=== PATIENT | female | born 1995 | race Caucasian/White ===

== ENCOUNTER → 2016-09-13 | Outpatient (CLI) | payer BC | LOC: RAD 10:54 | PROVIDERS: ATTEND Family Medicine | DX: Z36 Encounter for antenatal screening of mother (principal) | CPT/HCPCS: 76805 ==

== ENCOUNTER 2016-10-01 14:18 | Outpatient (RCR) | payer MEDICAID ==
[~2016-10-01 14:18] MED LIST: CEPH-507 PO; CODE-54 PO
== END 2016-12-01 18:25 | disposition home or self-care (01) ==
LOC: EUOP 14:18
PROVIDERS: ATTEND Family Medicine
DX: Z34.82 Encounter for supervision of other normal pregnancy, second trimester (principal)
CPT/HCPCS: 86850; 86900; 86901

== ENCOUNTER → 2016-10-06 | Outpatient (CLI) | payer BC, MEDICAID ==
--- NOTE | 2016-10-06 10:49 | Diagnostic Imaging Report ---
INDICATION: Spotting during Rivera intrauterine gestation is noted. Fetus is in transverse presentation with head to the left. Placenta is anterior and low lying, however, there is approximately 1.5-2 cm distance between the cervix and inferior aspect of the placenta. cardiac activity is present with a rate of 150 beats per minute. Amniotic fluid index is 15 cm. Estimated weight is 4.6 kg. No anomalies identified. Estimated gestational age is 22 weeks by biometric criteria. IMPRESSION: Unremarkable obstetric ultrasound with low-lying placenta. There is no evidence of previa. Estimated gestational age is 22 weeks with sonographic EDC of 02/09/2017. Dictated by: Dictated on workstation # [id number]
== END ==
LOC: RAD 08:54
PROVIDERS: ATTEND Family Medicine
DX: O26.852 Spotting complicating pregnancy, second trimester (principal); Z3A.22 22 weeks gestation of pregnancy
CPT/HCPCS: 76805

== ENCOUNTER → 2016-11-18 | Outpatient (REF) | payer BC, MEDICAID | LOC: LAB 10:45 | PROVIDERS: ATTEND Family Medicine | DX: Z34.82 Encounter for supervision of other normal pregnancy, second trimester (principal) | CPT/HCPCS: 86850; 86900; 86901 ==